=== PATIENT | female | born 1970 ===

== ENCOUNTER 2022-02-14 09:58 | Outpatient (CLI) | payer OTHER | END 2022-02-14 10:01 | disposition home or self-care (01) | LOC: SONOGRAMA 09:58 | PROVIDERS: ATTEND Pathology Anatomic Pathology & Clinical Pathology | DX: E04.1 Nontoxic single thyroid nodule (principal) ==

== ENCOUNTER 2023-05-05 07:30 | Outpatient (CLI) | payer OTHER | END 2023-05-05 07:40 | disposition home or self-care (01) | LOC: TOM 07:30 | PROVIDERS: ATTEND Internal Medicine Gastroenterology | DX: R19.5 Other fecal abnormalities (principal) ==